=== PATIENT | female | born 1945 | race Caucasian/White ===

== ENCOUNTER → 2017-06-10 | Outpatient (CLI) | payer MEDICARE ==
--- NOTE | 2017-06-11 13:12 | MM ---
Reason for exam: screening (asymptomatic). Last mammogram was performed 1 year ago. History: Patient is postmenopausal. Took estrogen for 7 years beginning at age 54. Physical Findings: A clinical breast exam by your physician is recommended on an annual basis and results should be correlated with mammographic findings. MG 3D Screening Mammo W/Cad Bilateral CC and MLO view(s) were taken. Prior study comparison: June 07, 2016, bilateral MG 3d screening mammo w/cad. September 10, 2012, bilateral digital screening mammo w/CAD. The breast tissue is heterogeneously dense. This may lower the sensitivity of mammography. Finding: There is a 3 mm mass on 3D CC 43/69 view in the left breast inner quadrant, central position, stable from the priors back to 2010.No suspicious abnormality. No significant changes in finding since June 07, 2016 and September 10, 2012. ASSESSMENT: Benign, BI-RAD 2 RECOMMENDATION: Routine screening mammogram of both breasts in 1 year.
== END | disposition home or self-care (01) ==
LOC: RADMAMWWP 09:06
PROVIDERS: ATTEND Family Medicine
DX: Z12.31 Encounter for screening mammogram for malignant neoplasm of breast (principal)
CPT/HCPCS: 77063; G0202

== ENCOUNTER → 2018-07-30 | Outpatient (CLI) | payer MEDICARE ==
--- NOTE | 2018-07-30 11:46 | US ---
EXAMINATION TYPE: US liver DATE OF EXAM: 07/30/2018 COMPARISON: NONE CLINICAL HISTORY: R94.5 Abnormal results of liver function studies. History of cholecystectomy EXAM MEASUREMENTS: Liver Length: 12.5 cm Gallbladder Wall: surgically absent CBD: 0.4 cm Right Kidney: 9.2 x 4.9 x 5.9 cm Pancreas: visualized portions wnl, tail obscured by overlying midline bowel gas Liver: mildly heterogeneous Gallbladder: surgically absent Evidence for sonographic Merchant's sign: yes CBD: visualized portions wnl, limited by overlying bowel gas Right Kidney: 0.5cm hyperechoic focus anterior mid pole IMPRESSION: 1. 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
--- NOTE | 2018-07-31 13:37 | MM ---
Reason for exam: screening (asymptomatic). Last mammogram was performed 1 year and 2 months ago. History: Patient is postmenopausal. Took estrogen for 7 years beginning at age 54. Physical Findings: A clinical breast exam by your physician is recommended on an annual basis and results should be correlated with mammographic findings. MG 3D Screening Mammo W/Cad Bilateral CC and MLO view(s) were taken. Prior study comparison: June 10, 2017, bilateral MG 3d screening mammo w/cad. June 07, 2016, bilateral MG 3d screening mammo w/cad. The breast tissue is heterogeneously dense. This may lower the sensitivity of mammography. Finding: There are typically benign dystrophic, round, linear calcifications in both breasts. There is no discrete abnormality. ASSESSMENT: Benign, BI-RAD 2 RECOMMENDATION: Routine screening mammogram of both breasts in 1 year.
== END | disposition home or self-care (01) ==
LOC: RADMAMWWP 08:48
PROVIDERS: ATTEND Family Medicine
DX: Z12.31 Encounter for screening mammogram for malignant neoplasm of breast (principal); R94.5 Abnormal results of liver function studies
CPT/HCPCS: 76705; 77063; 77067

== ENCOUNTER → 2020-03-20 | Outpatient (CLI) | payer MEDICARE ==
--- NOTE | 2020-03-27 14:09 | HM ---
HOLTER MONITOR REPORT Patient was monitored for 48 hours. The baseline rhythm is a sinus mechanism with normal conduction, the average rate 57 beats per minute, minimum of 41, maximum 92 beats per minute. Ventricular ectopic activity was present in the form of rare single PVCs. Supraventricular ectopic activity was present in the form occasional single PACs. There were short burst of sinus arrhythmia. Symptoms of heart flutter did not correlate with any dysrhythmia. CONCLUSION: 1. Sinus mechanism baseline rhythm. 2. Rare ventricular ectopic activity. 3. Occasional supraventricular ectopic activity. 4. Symptoms did not correlate with any dysrhythmia. MMODL / IJN: [id number] /
== END | disposition home or self-care (01) ==
LOC: RADECHMAIN 12:10
PROVIDERS: ATTEND Family Medicine
DX: R00.2 Palpitations (principal)
CPT/HCPCS: 93225; 93226

== ENCOUNTER → 2020-03-23 | Outpatient (CLI) | payer MEDICARE ==
--- NOTE | 2020-03-23 16:35 | MR ---
EXAMINATION TYPE: MR brain wo con DATE OF EXAM: 03/23/2020 COMPARISON: NONE HISTORY: Dizziness, tinnitus, vertigo TECHNIQUE: Multiplanar, multisequence imaging of the brain and brainstem is performed without IV cont rast. FINDINGS: Diffusion weighted images demonstrate no evidence of a recent infarct or other diffusion abnormality. There is no worrisome extra-axial fluid collection. Diffuse ventricular and sulcal prominence is pres ent. Focal and confluent areas of T2 hyperintensity seen throughout the superficial deep and perivent ricular white matter. T2 Star weighted images show no suspicious intraparenchymal blood products. Midline structures demonstrate normal morphology. The craniocervical junction appears within normal limits. Normal vascular flow voids are present. The visualized sinuses are clear and the globes are i ntact. No suspicious fluid signal bilateral mastoid air cells. IMPRESSION: There is fairly moderate diffuse cerebral atrophy and moderate to severe chronic small ve ssel ischemic change noted.
--- NOTE | 2020-03-24 06:54 | MR ---
EXAMINATION TYPE: MR iac wo/w con DATE OF EXAM: 03/23/2020 COMPARISON: Same day MRI brain study. HISTORY: Dizziness, tinnitus, vertigo TECHNIQUE: Multiplanar, multisequence images of the brain and brainstem is performed without and with IV contras t, utilizing 8.5 mL intravenous Gadavist . Acoustic nerve disorder protocol. FINDINGS: No suspicious fluid signal in the mastoid air cells bilaterally. The vestibulocochlear comp lexes are symmetric and thought within normal limits. There is no suspicious enhancing cerebelloponti ne angle mass identified bilaterally. IMPRESSION: Cause of patient's symptoms of dizziness, tinnitus, and vertigo not clearly identified on this study.
== END | disposition home or self-care (01) ==
LOC: RADMRIMAIN 15:31
PROVIDERS: ATTEND Family Medicine
DX: I67.82 Cerebral ischemia (principal); G31.1 Senile degeneration of brain, not elsewhere classified; R25.1 Tremor, unspecified; R42 Dizziness and giddiness
CPT/HCPCS: 70551; 70553; A9585

== ENCOUNTER → 2020-05-22 | Outpatient (CLI) | payer MEDICARE ==
--- NOTE | 2020-05-23 12:28 | MM ---
Reason for exam: screening (asymptomatic). Last mammogram was performed 1 year and 10 months ago. History: Patient is postmenopausal. Took estrogen for 7 years beginning at age 54. Physical Findings: A clinical breast exam by your physician is recommended on an annual basis and results should be correlated with mammographic findings. MG 3D Screening Mammo W/Cad Bilateral CC and MLO view(s) were taken. Prior study comparison: July 30, 2018, bilateral MG 3d screening mammo w/cad. June 10, 2017, bilateral MG 3d screening mammo w/cad. The breast tissue is heterogeneously dense. This may lower the sensitivity of mammography. Finding: There are typically benign dystrophic, round, linear calcifications in both breasts. There is no discrete abnormality. ASSESSMENT: Benign, BI-RAD 2 RECOMMENDATION: Routine screening mammogram of both breasts in 1 year.
== END | disposition home or self-care (01) ==
LOC: RADMAMWWP 09:05
PROVIDERS: ATTEND Family Medicine
DX: Z12.31 Encounter for screening mammogram for malignant neoplasm of breast (principal)
CPT/HCPCS: 77063; 77067

== ENCOUNTER → 2020-06-22 | Outpatient (CLI) | payer MEDICARE ==
--- NOTE | 2020-06-22 08:53 | XR ---
EXAMINATION TYPE: XR chest 2V DATE OF EXAM: 06/22/2020 COMPARISON: NONE TECHNIQUE: PA and lateral views submitted. HISTORY: Heart palpitations FINDINGS: The lungs are clear and there is no pneumothorax, pleural effusion, or focal pneumonia. Heart size normal. No overt failure. Biapical pleural thickening. Hypertrophic and degenerative changes of the s pine. Surgical clips in the abdomen. Atherosclerotic change aorta. IMPRESSION: 1. No acute process.
== END | disposition home or self-care (01) ==
LOC: RADXRMAIN 08:16
PROVIDERS: ATTEND Family Medicine
DX: R00.2 Palpitations (principal)
CPT/HCPCS: 71046

== ENCOUNTER → 2020-06-22 | Outpatient (CLI) | payer MEDICARE ==
--- NOTE | 2020-06-22 12:11 | US ---
EXAMINATION TYPE: US duplex aorta DATE OF EXAM: 06/22/2020 COMPARISON: NONE CLINICAL HISTORY: Z82.49, Z77.22. family history, brother, no symptom per patient EXAM MEASUREMENTS: Abdominal Aorta: Proximal: 2.0 x 2.2cm Mid: 1.5 x 1.9cm Distal: 1.1 x 1.2cm Bifurcation: Rt 0.7 x 0.8cm Lt 0.8 x 0.9cm Normal caliber aorta seen throughout. A scale, color Doppler, spectral Doppler imaging performed. IMPRESSION: No abdominal aortic aneurysm.
== END | disposition home or self-care (01) ==
LOC: RADUSWWP 07:58
PROVIDERS: ATTEND Family Medicine
DX: Z13.6 Encounter for screening for cardiovascular disorders (principal); Z82.49 Family history of ischemic heart disease and other diseases of the circulatory system; Z77.22 Contact with and (suspected) exposure to environmental tobacco smoke (acute) (chronic)
CPT/HCPCS: 93979

== ENCOUNTER → 2021-11-14 | Outpatient (CLI) | payer MEDICARE ==
--- NOTE | 2021-11-14 12:23 | P.STRESS ---
- Stress Test Note Stress Test Results/Findings: Exam Performed: stress echo exercise Exam Date: 11/14/21 Reason for Exam: t wave inversion Height: 5 ft 5 in Weight: 187 kg Protocol: stress echo Stage: II Duration of Exercise: 3.43 Resting Heart Rate: 62 Resting Blood Pressure: 211/76 Maximum Achieved Heart Rate: 127 Maximum Achieved Blood Pressure: 211/76 85% PMHR: 125 100% PMHR: 147 METS: 5.2 Technologist Comment: Stress Test Results/Findings: Patient underwent exercise stress echo with a Ovi protocol treadmill stress test. Patient exercised into Stage 2 for a total of 3 minutes and 43 seconds reaching a total of 5.2 METS. Patient's maximum heart rate was 127 which represented 86 % age-predicted maximum heart rate. Stress EKG portion: At baseline patient's EKG showed normal sinus rhythm, normal axis, T-wave inversions in lead V4 through V6, 2, aVF, 1, aVL. At peak exercise, EKG showed mild accentuation of a sinus EKG abnormalities with 0.[address] depressions in the lateral leads. Stress echo portion: 2-D echocardiogram was performed in the parasternal long, personal short, apical 2 and apical four-chamber views at rest, peak exercise and in recovery. At baseline, echocardiogram showed left ventricular ejection fraction 55% without wall motion abnormalities. With peak exercise, echocardiogram shows basal to apical anterior hypokinesis consistent with ischemia. Conclusions: 1. Nondiagnostic EKG portion secondary baseline EKG abnormalities 2. Abnormal stress echo portion with inducible anterior hypokinesis 3. Poor exercise capacity.
== END | disposition home or self-care (01) ==
LOC: RADNMMAIN 08:42
PROVIDERS: ATTEND Internal Medicine
DX: R94.31 Abnormal electrocardiogram [ECG] [EKG] (principal)
CPT/HCPCS: 93351

== ENCOUNTER 2021-11-28 07:27 | Day surgery (SDC) | payer MEDICARE ==
[2021-11-27 11:44] VITALS: BMI 31.1
[~2021-11-28 07:27] MED LIST: ALPRAZolam 0.25 MG TAB PO PRN; ALPRAZolam 0.5 MG TAB PO PRN; ASPIRIN 325 MG TAB PO ONE; ATORVASTATIN 80 MG TAB PO ONE; HEPARIN SODIUM,PORCINE 10,000 UNIT in SODIUM CHLORIDE 0.9% 1,000 ML IRRIGATION PRN; HEPARIN SODIUM,PORCINE 2,500 UNIT in SODIUM CHLORIDE 0.9% 250 ML IRRIGATION PRN; NITROGLYCERIN SL TABS 0.4 MG TAB SUBLINGUAL PRN; SODIUM CHLORIDE 0.9% 1,000 ML in EMPTY BAG 1 BAG IV ONE
[2021-11-28 07:52] VITALS: RESP 18; TEMP 97.2
[2021-11-28] MEDS ORDERED: HEPARIN SODIUM 1,000 UN/ML (10ML VL) ONE (08:36)
[2021-11-28] MEDS ORDERED: fentaNYL (PF) 50 MCG/ML 2 ML AMP ONE (08:36)
[2021-11-28] MEDS ORDERED: VERAPAMIL 2.5 MG/ML 2 ML AMP ONE (08:36)
[2021-11-28] MEDS ORDERED: NITROGLYCERIN OINT 1 INCH/GM PACKET TOPICAL ONE ×2 (09:07→09:11)
[2021-11-28] MEDS ORDERED: MIDAZOLAM 2 MG/2 ML VIAL IV ONE (09:08)
[2021-11-28] MEDS ORDERED: ENALAPRILAT 1.25 MG/ML 1 ML VIAL ONE (09:08)
[2021-11-28] MEDS ORDERED: fentaNYL (PF) 50 MCG/ML 2 ML AMP IV ONE (09:08)
[2021-11-28] MEDS ORDERED: ENALAPRILAT 1.25 MG/ML 1 ML VIAL IV ONE (09:10)
[2021-11-28] MEDS ORDERED: LIDOCAINE 1% PF 10 MG/ML (5 ML AMP) SQ ONE (09:10)
[2021-11-28] MEDS ORDERED: VERAPAMIL SYRINGE (5 MG/10 ML) INTRAARTER ONE (09:11)
[2021-11-28] MEDS ORDERED: HEPARIN SODIUM 1,000 UN/ML (10ML VL) IV ONE (09:14)
[2021-11-28] MEDS ORDERED: IOPAMIDOL-370 125ML BTL INJ ONE (09:20)
[2021-11-28] MEDS ORDERED: RX INFO: IV CONTRAST WAS GIVEN 1 EACH MISC MISCELLANE PRN (10:07)
--- NOTE | 2021-11-28 10:09 | CC ---
CARDIAC CATHETERIZATION REPORT INDICATION: Chest pain with abnormal stress echo showing ischemia in LAD distribution. PROCEDURE NOTE: After obtaining informed consent, left heart catheterization and coronary angiogram were performed via the right radial artery using size 3.5 right and left Royal catheters. Left ventricular pressures were obtained using the right Royal catheter. Patient tolerated the procedure well without any obvious immediate complications. She received moderate conscious sedation. Total sedation time was 10 minutes. Using a micropuncture needle with Seldinger technique, right radial artery access was obtained, and under fluoroscopic guidance catheters and wires were advanced into the ascending aorta, where they were exchanged. Patient received 5 mg of verapamil and 5000 units of heparin as per protocol. A TR band was used at the end of the procedure for hemostasis with the standard protocol. FINDINGS: HEMODYNAMICS: Left ventricular end-diastolic pressure is 21 mm. There is no significant gradient across the aortic valve. LEFT VENTRICULOGRAM: Left ventriculogram was not performed. ANGIOGRAPHIC DATA: Right coronary artery is a large dominant vessel and is free of significant disease. Left main coronary artery is a normal-sized vessel and is free of significant stenosis. It divides into left anterior descending coronary artery and circumflex coronary artery. LAD and its branches, circumflex coronary artery and its branches are free of significant stenosis. CONCLUSIONS: 1. Normal coronary arteries. 2. Elevated left ventricular end-diastolic pressures. 3. Uncontrolled hypertension. PLAN: Patient's stress test is a false-positive stress test. Her symptoms could be related to uncontrolled hypertension. I will increase the dose of clonidine from 0.1 three times a day to 0.3 three times a day and continue the rest of her medications. I will give her 1.25 mg of Vasotec and put an inch of nitroglycerin paste on her prior to cardiac catheterization, as her blood pressures were poorly controlled. MMODL / IJN: [id number] /
--- NOTE | 2021-11-28 10:12 | LTR ---
November 28, 2021 To: Dr. Laureano Amaro Re: Greg Dixon ([id number]) Dear Dr. Amaro, I performed cardiac catheterization on Loida Dixon. A detailed catheterization note is enclosed for your records. In brief, the cardiac catheterization did not reveal significant obstructive CAD. I believe patient's symptoms are related to uncontrolled hypertension, and we will manage the same aggressively. Thank you for giving me the privilege of participating in the care of this pleasant lady. Sincerely, Austyn Sun M.D. ESTHER / ZENIA: [id number] /
[2021-11-28] MEDS ORDERED: SODIUM CHLORIDE 0.9% 1,000 ML IV SCH (10:15)
[2021-11-28 13:21] VITALS: BP 146/67; PULSE 49
== END 2021-11-28 14:50 | disposition home or self-care (01) ==
LOC: CATHCVL 07:27
PROVIDERS: ATTEND Internal Medicine Cardiovascular Disease
DX: R07.9 Chest pain, unspecified (principal); R94.39 Abnormal result of other cardiovascular function study; I51.89 Other ill-defined heart diseases; I10 Essential (primary) hypertension; E78.2 Mixed hyperlipidemia; E03.9 Hypothyroidism, unspecified; Z88.2 Allergy status to sulfonamides; Z82.49 Family history of ischemic heart disease and other diseases of the circulatory system; Z79.82 Long term (current) use of aspirin; Z79.890 Hormone replacement therapy; Z79.899 Other long term (current) drug therapy
CPT/HCPCS: 93458; C1894; J2250; J2001; J3010; J1644; Q9967

== ENCOUNTER → 2022-01-11 | Outpatient (CLI) | payer MEDICARE ==
--- NOTE | 2022-01-11 16:06 | BD ---
EXAMINATION TYPE: Axial Bone Density DATE OF EXAM: 01/11/2022 COMPARISON: 06/07/2016 CLINICAL HISTORY: 76 years year old Female. ICD-10 CODE: V8281 ENCOUNTER FOR OSTEOPOROSIS SCREENING Height: 64 IN Weight: 184 LBS FRAX RISK QUESTIONS: Family History (Parent hip fracture): YES MOTHER History of Fracture in Adulthood: RT SHOULDER AGE 68 RISK FACTORS HISTORY OF: Family History of Osteoporosis: MOTHER Active: YES Diet low in dairy products/other sources of calcium: YES Postmenopausal woman: TOTAL HYST AGE 52 Take estrogen and/or progesterone medications: NOT NOW How long: TOOK 10 YEARS MEDICATIONS: Thyroid Medications: YES Which medication: Levothyroxine How Lon YEARS Additional Medications: VIT D3, LEVOTHYROXINE, ESSENTIAL TREMORS MEDS, BLOOD PRESSURE MEDS, CHOLESTER OL MEDS, EXAM MEASUREMENTS: Bone mineral densitometry was performed using the Trendzo System. Bone mineral density as measured about the Lumbar spine is: ----- L1-L4(G/cm2): 1.722 T Score Values are as follows: ----- L1: 3.5 ----- L2: 3.9 ----- L3: 4.9 ----- L4: 5.3 ----- L1-L4: 4.5 Bone mineral density has: Decreased -1.6% since study of: 06/07/2016 Bone mineral density about the R hip (g/cm2): 1.196 Bone mineral density about the L hip (g/cm2): 1.286 T Score values are as follows: -----R Neck: 1.1 -----L Neck: 1.8 -----R Total: 1.2 -----L Total: 1.0 Bone mineral density has: Decreased -1.2% since study of: 06/07/2016 FRAX%s: The graph provided illustrates a 3.9 chance for a major osteoporotic fx and a 0.6 chance for the hips probability for fx in 10 years time. IMPRESSION: Normal (Values between +1 and -1 indicate normal bone mass). Consider repeating this study in 5 year s or sooner if there is some new clinical indication. NOTE: T-SCORE=SD OF THE YOUNG ADULT MEAN.
--- NOTE | 2022-01-14 18:47 | MM ---
Reason for Exam: Screening (asymptomatic). Last mammogram was performed 1 year(s) and 8 month(s) ago. Patient History: Menarche at age 15. First Full-Term at age 26. Left ovary removed at age 53. Right ovary removed at age 53. Hysterectomy at age 53. Postmenopausal. Estrogen for 7 years from age 54 until age 61. Risk Values: Alejandra 5 year model risk: 1.6%. NCI Lifetime model risk: 3.7%. Prior Study Comparison: 06/10/2017 Bilateral Screening Mammogram, [facility]. 07/30/2018 Bilateral Screening Mammogram, [facility]. 05/22/2020 Bilateral Screening Mammogram, [facility]. Tissue Density: The breast tissue is heterogeneously dense. This may lower the sensitivity of mammography. Findings: Analyzed By CAD. Scattered benign oil cyst and secretory calcifications on both sides. Unchanged medial asymmetric density right breast. No significant change from prior exams. Overall Assessment: Benign, BI-RAD 2 Management: Screening Mammogram of both breasts in 1 year. 1. A clinical breast exam by your physician is recommended on an annual basis and results should be correlated with mammographic findings. 2. The patient should continue monthly self breast exams. 3. This exam should not preclude additional follow-up of suspicious palpable abnormalities. Electronically signed and approved by: Tamar Ha M.D. Radiologist
== END | disposition home or self-care (01) ==
LOC: RADMAMWWP 07:54
PROVIDERS: ATTEND Internal Medicine
DX: Z12.31 Encounter for screening mammogram for malignant neoplasm of breast (principal); Z13.820 Encounter for screening for osteoporosis; Z78.0 Asymptomatic menopausal state
CPT/HCPCS: 77063; 77067; 77080

== ENCOUNTER → 2023-03-05 | Outpatient (CLI) | payer MEDICARE ==
--- NOTE | 2023-03-05 09:02 | MM ---
Reason for Exam: Screening (asymptomatic). Last mammogram was performed 1 year(s) and 2 month(s) ago. Patient History: Menarche at age 15. First Full-Term at age 26. Left ovary removed at age 53. Right ovary removed at age 53. Hysterectomy at age 53. Postmenopausal. Estrogen for 7 years from age 54 until age 61. Risk Values: Alejandra 5 year model risk: 1.6%. NCI Lifetime model risk: 3.4%. Prior Study Comparison: 07/30/2018 Bilateral Screening Mammogram, [facility]. 05/22/2020 Bilateral Screening Mammogram, [facility]. 01/11/2022 Bilateral MG 3D screening mammo w/cad, [facility]. Tissue Density: The breast tissue is heterogeneously dense. This may lower the sensitivity of mammography. Findings: Analyzed By CAD. There is no suspicious group of microcalcifications or new suspicious mass in either breast. Stable benign calcifications within both breasts. Unchanged medial asymmetric density of the right breast. Chronic nodularity with the left breast is unchanged. Overall Assessment: Benign, BI-RAD 2 Management: Screening Mammogram of both breasts in 1 year. A clinical breast exam by your physician is recommended on an annual basis and results should be correlated with mammographic findings. Note on Alejandra scores and lifetime risk: 1. A Alejandra score greater than 3% is considered moderate risk. If this is the case, consider specialist referral to assess eligibility for a risk reducing agent. If overall lifetime risk for the development of breast cancer is 20% or higher, the patient may qualify for future screening with alternating mammogram and breast MRI. Electronically signed and approved by: Deny Schmitt D.O.
== END | disposition home or self-care (01) ==
LOC: RADMAMWWP 07:54
PROVIDERS: ATTEND Internal Medicine
DX: Z12.31 Encounter for screening mammogram for malignant neoplasm of breast (principal); Z78.0 Asymptomatic menopausal state
CPT/HCPCS: 77063; 77067

== ENCOUNTER → 2023-06-10 | Outpatient (CLI) | payer MEDICARE ==
--- NOTE | 2023-06-10 08:36 | US ---
EXAMINATION TYPE: US abdomen complete DATE OF EXAM: 06/10/2023 COMPARISON: US 07/30/2018 CLINICAL INDICATION: Female, 77 years old with history of R74.01 ELEVATION OF LEVELS OF LIVER TRANSAM INASE; Elevated LFT's, GB surgically removed TECHNIQUE: Multiple sonographic images of the abdomen are obtained. FINDINGS: EXAM MEASUREMENTS: Liver Length: 15.3 cm CBD: 0.8 cm Spleen: 8.8 cm Right Kidney: 9.5 x 4.9 x 4.4 cm Left Kidney: 10.2 x 4.9 x 4.7 cm AIRPORT OPERATIONS OFFICER NOTES: Pancreas: wnl, Head and Tail obscured by overlying bowel gas Liver: Heterogeneous Gallbladder: Surgically absent CBD: wnl Spleen: wnl Right Kidney: wnl Left Kidney: wnl Upper IVC: wnl Abd Aorta: wnl The visualized portions of the pancreas unremarkable. The head and tail aren't secured by overlying b owel gas. Liver demonstrates a hyperechoic coarsened echotexture without focal lesion identified. Gal lbladder surgically absent. Common bile duct is within normal limits. The spleen is within normal jessica its. Both kidneys demonstrate no evidence of solid mass, calculus, or hydronephrosis. The upper IVC a nd abdominal aorta are within normal limits. IMPRESSION: 1. No acute process. 2. Hepatic steatosis. 3. Post cholecystectomy changes.
== END | disposition home or self-care (01) ==
LOC: RADUSWWP 08:05
PROVIDERS: ATTEND Internal Medicine
DX: K76.0 Fatty (change of) liver, not elsewhere classified (principal); R74.01 Elevation of levels of liver transaminase levels; Z90.49 Acquired absence of other specified parts of digestive tract
CPT/HCPCS: 76700

== ENCOUNTER → 2023-07-15 | Outpatient (CLI) | payer MEDICARE ==
[2023-07-15 09:51] VITALS: BP 181/78; PULSE 70; RESP 18; TEMP 98.4
--- NOTE | 2023-07-15 11:09 | P.HPOB ---
History of Present Illness H&P Date: 07/15/23 Chief Complaint: The patient is here for her routine gynecologic exam and ma mmogram. This is a 77-year-old with an LMP of 1999. The patient is here to establish with this office. It has been about 2-3 years since her last pelvic exam. She is status post JULISA/BSO for benign reasons. She states that her has noticed some lumps in the vagina that he noticed with his fingers during sexual activity. This has been noticed for many years. The patient states she feels a firm area in the posterior vagina that she can palpate and is from nail size. Her thinks he feels some polyp-like tissue higher in the vagina. She states these are not painful and they have been there for many years. She is otherwise without gynecologic complaints. Review of Systems The patient's weight has been stable over the last year. She denies respiratory, cardiac, or G.I. problems. Past Medical History Past Medical History: Hyperlipidemia, Hypertension, Thyroid Disorder Additional Past Medical History / Comment(s): Essential tremor. 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 Possible fatty liver. 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 History of Any Multi-Drug Resistant Organisms: None Reported Past Surgical History: Appendectomy, Cholecystectomy, Hysterectomy Additional Past Surgical History / Comment(s): JULISA/BSO 1999. Excision of Bartholin's duct cyst. Colonoscopy 2019(next after 3 years.) Past Anesthesia/Blood Transfusion Reactions: No Reported Reaction Past Psychological History: No Psychological Hx Reported Smoking Status: Never smoker Past Alcohol Use History: Daily (2-3 glasses of wine per day. Occasional liquor on the weekend.) Past Drug Use History: None Reported Additional History: She has been since 1992 and this is her second ma rriage. 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 - Past Family History Mother Family Medical History: Dementia, Hyperlipidemia Additional Family Medical History / Comment(s): Alzheimer's disease and osteoporosis. She denies family history of cancer of the breast, uterus, ovaries, or colon. Father Family Medical History: Coronary Artery Disease (CAD), Dementia Medications and Allergies Home Medications Medication Instructions Recorded Confirmed Type Aspirin [Adult Low Dose Aspirin EC] 81 mg PO DAILY 11/27/21 07/15/23 History Levothyroxine Sodium [Synthroid] 50 mcg PO QAM 11/27/21 07/15/23 History Propranolol HCl [Propranolol HCl 120 mg PO 1200 11/27/21 07/15/23 History ER] Rosuvastatin Calcium 10 mg PO HS 11/27/21 07/15/23 History amLODIPine [Norvasc] 5 mg PO DAILY 07/15/23 07/15/23 History Allergies Allergy/AdvReac Type Severity Reaction Status Date / Time eggplant Allergy Chest Pain Verified 07/15/23 09:37 Sulfa (Sulfonamide Allergy Swelling Verified 07/15/23 09:37 Antibiotics) latex AdvReac Itching Verified 07/15/23 09:37 Exam Vital Signs Temp Pulse Resp BP Pulse Ox 07/15/23 09:40 98.4 F 70 18 181/78 97 Intake and Output 07/14/23 07/15/23 07/15/23 22:59 06:59 14:59 Other: Weight 86.183 kg Height 5 feet 5 inches, weight 190 pounds, BMI 31.6. This is a well-developed well-nourished white female who is alert and oriented times 3 in no acute distress. HEENT: Within normal limits. NECK: Supple without mass or thyromegaly. CHEST AND LUNGS: Clear to auscultation. HEART: Regular rate and rhythm. BREASTS: Are without mass or discharge. AXILLARY EXAM: Negative for adenopathy. BACK: Negative for CVA tenderness. ABDOMEN: Soft, nontender, without palpable masses. PELVIC EXAM: External genitalia appears normal with mild atrophy. Vagina appears normal mild atrophy. There are small benign-appearing flaps of vaginal mucosa measuring approximately 0.5 cm in the posterior vagina on the right side. There is no evidence of prolapse. There is a palpable submucosal cyst noted in the midline posteriorly approximately 4 cm from the introitus. This is smooth and mobile and measures approximately 1.5 cm. It is nontender. Bimanual examination is negative for mass or tenderness. RECTAL EXAM: Rectovaginal exam is remarkable for a palpable cyst as described in the vaginal exam which seems to be submucosal but is palpable in the rectovaginal septum. Again, it is mobile and nontender in seems to be a benign cyst. The rectovaginal septum is quite thin but there is no evidence of fistula. EXTREMITIES: Nontender. IMPRESSION: 1. 77-year-old menopausal female status post JULISA/BSO for benign reasons, with a submucosal vaginal cyst on the posterior aspect of the vagina approximately 4 cm from the introitus which has been noticed for many years by the patient and her . This seems to be a benign cyst since it has not changed according to the patient for many years. PLAN: 1. Pap smears have been discontinued. 2. Self breast awareness was discussed with the patient. We have also discussed symptoms associated with inflammatory breast cancer. 3. Screening mammogram was done on 03/05/2023 and was benign. She will repeat this after 1 year. 4. Osteoporosis prevention was discussed. I have stressed the importance of adequate calcium, vitamin D and regular exercise. Recommended amounts of calcium and vitamin D were also discussed. She had normal bone density test on 01/11/2022. I have recommended she repeat this in approximate 5 years. 5. We have had a long discussion regarding the vaginal findings. Uses seem to be very benign findings. We have discussed the option of surgical removal of the submucosal cyst that measures approximate 1.5 cm, however, I do not feel that this is necessary and, in fact, it may pose a significant risk of potentially causing a tear into the rectum. We have decided to follow this conservatively. She will check it regularly and call if there are any changes. I also recommended that she return in 6 months for a recheck by me. 6. She will also return on a regular basis for her well woman examination.
== END ==
LOC: WWCWWP 09:30
PROVIDERS: ATTEND Obstetrics & Gynecology
DX: N89.8 Other specified noninflammatory disorders of vagina (principal); E03.9 Hypothyroidism, unspecified; E78.5 Hyperlipidemia, unspecified; G25.0 Essential tremor; I10 Essential (primary) hypertension; Z90.710 Acquired absence of both cervix and uterus; Z78.0 Asymptomatic menopausal state; Z90.722 Acquired absence of ovaries, bilateral; Z79.890 Hormone replacement therapy; Z79.899 Other long term (current) drug therapy; Z79.82 Long term (current) use of aspirin; Z91.012 Allergy to eggs; Z88.2 Allergy status to sulfonamides; Z91.040 Latex allergy status

== ENCOUNTER 2023-08-22 07:08 | Day surgery (SDC) | payer MEDICARE ==
[2023-08-18 09:38] VITALS: BMI 32.4
[~2023-08-22 07:08] MED LIST changes: -ALPRAZolam 0.25 MG TAB PO PRN; -ALPRAZolam 0.5 MG TAB PO PRN; -ASPIRIN 325 MG TAB PO ONE; -ATORVASTATIN 80 MG TAB PO ONE; -HEPARIN SODIUM,PORCINE 10,000 UNIT in SODIUM CHLORIDE 0.9% 1,000 ML IRRIGATION PRN; -HEPARIN SODIUM,PORCINE 2,500 UNIT in SODIUM CHLORIDE 0.9% 250 ML IRRIGATION PRN; +LACTATED RINGERS 1,000 ML IV SCH; +LIDOCAINE 1% (10MG/ML) FOR IV START INTRADERMA PRN; -NITROGLYCERIN SL TABS 0.4 MG TAB SUBLINGUAL PRN; -SODIUM CHLORIDE 0.9% 1,000 ML in EMPTY BAG 1 BAG IV ONE
[2023-08-22 08:01] VITALS: TEMP 98
[2023-08-22] MEDS ORDERED: LIDOCAINE 1% INJ 10MG/ML (20 ML MDV) ONE (08:18)
[2023-08-22] MEDS ORDERED: PROPOFOL 10 MG/ML 20 ML VIAL IV ONE (08:18)
--- NOTE | 2023-08-22 08:36 | P.PCN ---
Date of Procedure: 08/22/23 Procedure(s) Performed: BRIEF HISTORY: Patient is a 77-year-old pleasant white female scheduled for an elective colonoscopy as a part of evaluation of prior history of colon polyps. Last colonoscopy was 3 years ago. PROCEDURE PERFORMED: Colonoscopy. PREOPERATIVE DIAGNOSIS: History of colon polyps. IV sedation per Anesthesia. PROCEDURE: After informed consent was obtained, the patient, was brought into the endoscopy unit. IV sedation was administered by Anesthesia under continuous monitoring. Digital rectal examination was normal. Initially the Olympus CF-160 flexible video colonoscope was then inserted in the rectum, gradually advanced into the cecum without any difficulty. Careful examination was performed as the scope was gradually being withdrawn. Ileocecal valve and the appendiceal orifice were visualized and appeared normal. Prep was excellent. Mucosa of the cecum, ascending colon, transverse colon, descending colon, sigmoid colon, and rectum appeared normal. Retroflexion was performed in the rectum and small internal hemorrhoids were seen. The patient tolerated the procedure well. IMPRESSION: ' Normal-appearing colon from rectum to cecum with no evidence of colorectal neoplasia. Small internal hemorrhoids. RECOMMENDATIONS: Findings of this examination were discussed with the patient as well as her family. She was advised to have a repeat colonoscopy in 5 years from now because of the prior history of colon polyps.
[2023-08-22 09:17] VITALS: BP 114/67; PULSE 77; RESP 15
== END 2023-08-22 09:13 | disposition home or self-care (01) ==
LOC: ORWHC2ENDO 07:08
PROVIDERS: ATTEND Internal Medicine Gastroenterology
DX: Z12.11 Encounter for screening for malignant neoplasm of colon (principal); K64.8 Other hemorrhoids; Z86.010 Personal history of colon polyps
CPT/HCPCS: J2001; J2704; G0105

== ENCOUNTER 2024-01-21 11:02 | Observation (INO) | payer MEDICARE ==
--- NOTE | 2024-01-21 11:57 | ED ---
Chest Pain HPI - General Chief Complaint: Chest Pain Stated Complaint: Chest Pain Time Seen by Provider: 01/21/24 11:20 Source: patient, RN notes reviewed Mode of arrival: ambulatory Limitations: no limitations - History of Present Illness Initial Comments: 78-year-old female with history of hypertension presenting with chest pressure x 2 hours. States she was driving in the car with her coming home from the grocery store when she began to feel a sensation in her chest that feels like pressure. It radiates to both shoulders. She also was experiencing heart palpitations at this time. She drove to her PCP office who performed an EKG and gave her 3 baby aspirin and a nitroglycerin tablet. He told her he wanted to call an ambulance for her however patient declined and decided to drive to the ER instead. She reports she is no longer having the chest pressure. Denies chest pain, shortness of breath. She takes a daily aspirin however denies blood thinners. She had workup done with Dr. [employer] representative who told her that her heart looked normal. Denies history of CA. She takes propranolol 120 mg daily however reports she did not take this morning. - Related Data Home Medications Medication Instructions Recorded Confirmed Aspirin [Adult Low Dose Aspirin EC] 81 mg PO DAILY@1800 11/27/21 01/21/24 Levothyroxine Sodium [Synthroid] 50 mcg PO DAILY@0500 11/27/21 01/21/24 Propranolol HCl [Propranolol HCl 120 mg PO DAILY@1000 11/27/21 01/21/24 ER] Rosuvastatin Calcium 10 mg PO HS@2100 11/27/21 01/21/24 amLODIPine [Norvasc] 5 mg PO DAILY@1200 07/15/23 01/21/24 Allergies Allergy/AdvReac Type Severity Reaction Status Date / Time eggplant Allergy Chest Pain Verified 01/21/24 13:22 Sulfa (Sulfonamide Allergy Swelling Verified 01/21/24 13:22 Antibiotics) latex AdvReac Itching Verified 01/21/24 13:22 Review of Systems ROS Statement: Those systems with pertinent positive or pertinent negative responses have been documented in the HPI. ROS Other: All systems not noted in ROS Statement are negative. EKG Findings - EKG Results: EKG: interpreted by JOESPH (EKG reveals normal sinus rhythm with no ST changes. Ventricular rate 80 bpm, ID interval 157, QRS duration 69, QT/QTc 373/409.) Past Medical History Past Medical History: Hyperlipidemia, Hypertension, Osteoarthritis (OA), Thyroid Disorder Additional Past Medical History / Comment(s): Essential tremor. 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 fatty liver. 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 History of Any Multi-Drug Resistant Organisms: None Reported Past Surgical History: Appendectomy, Cholecystectomy, Hysterectomy Additional Past Surgical History / Comment(s): JULISA/BSO 1999. Excision of Bartholin's duct cyst. Colonoscopy 2019.) Past Anesthesia/Blood Transfusion Reactions: No Reported Reaction Additional Past Anesthesia/Blood Transfusion Reaction / Comment(s): no blood transfusion Past Psychological History: No Psychological Hx Reported Smoking Status: Never smoker Past Alcohol Use History: None Reported Past Drug Use History: None Reported - Past Family History Mother Family Medical History: Dementia, Hyperlipidemia Additional Family Medical History / Comment(s): Alzheimer's disease and osteoporosis. She denies family history of cancer of the breast, uterus, ovaries, or colon. Father Family Medical History: Coronary Artery Disease (CAD), Dementia General Exam Limitations: no limitations General appearance: alert, in no apparent distress Head exam: Present: atraumatic, normocephalic, normal inspection Eye exam: Present: normal appearance, PERRL, EOMI. Absent: scleral icterus, conjunctival injection, periorbital swelling ENT exam: Present: normal exam, mucous membranes moist Neck exam: Present: normal inspection. Absent: tenderness, meningismus, lymphadenopathy Respiratory exam: Present: normal lung sounds bilaterally. Absent: respiratory distress, wheezes, rales, rhonchi, stridor Cardiovascular Exam: Present: regular rate, normal rhythm, normal heart sounds. Absent: systolic murmur, diastolic murmur, rubs, gallop, clicks GI/Abdominal exam: Present: soft, normal bowel sounds. Absent: distended, tenderness, guarding, rebound, rigid Extremities exam: Present: normal inspection, full ROM, normal capillary refill. Absent: tenderness, pedal edema, joint swelling, calf tenderness Neurological exam: Present: alert, oriented X3, CN II-XII intact Psychiatric exam: Present: normal affect, normal mood Skin exam: Present: warm, dry, intact, normal color. 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 sent in by a medical professional or institution (, [facility], HEALTH EQUIPMENT SERVICER, urgent care, hospital, or [place] health care facility...) When possible be specific @ -Sent by Dr. Amaro for ACS rule out Did you speak to anyone other than the patient for history (EMS, parent, family, police, friend...)? What history was obtained from this source @ -No Did you review nursing and triage notes (agree or disagree)? Why? @ -I reviewed and agree with nursing and triage notes Were old charts reviewed (outside hosp., previous admission, EMS record, old EKG, old radiological studies, urgent care reports/EKG's, [place] health care facility records)? Report findings @ -No old charts were reviewed Differential Diagnosis (chest pain, altered mental status, abdominal pain women, abdominal pain men, vaginal bleeding, weakness, fever, dyspnea, syncope, headache, dizziness, GI bleed, back pain, seizure, CVA, palpatations, mental health, musculoskeletal)? @ -Differential Chest Pain: Stable Angina, Unstable Angina, STEMI, NSTEMI Aortic Dissection, Pneumothorax, Musculoskeletal, Esophageal Spasm GERD, Cholecystitis, Pancreatitis, Zoster, this is not meant to be an all-inclusive list. EKG interpreted by me (3pts min.). @ -As above X-rays interpreted by me (1pt min.). @ -Chest x-ray reveals no acute process CT interpreted by me (1pt min.). @ -None done U/S interpreted by me (1pt. min.). @ -None done What testing was considered but not performed or refused? (CT, X-rays, U/S, labs)? Why? @ -None What meds were considered but not given or refused? Why? @ -None Did you discuss the management of the patient with other professionals (professionals i.e. , [facility], HEALTH EQUIPMENT SERVICER, lab, RT, psych nurse, psychotherapist social worker, transportation technician, teacher, environmental conservation officer, major case detective)? Give summary @ -Case discussed with Dr. Nielsen who accepts admission to observation at this time to rule out ACS with cardiology consult Was smoking cessation discussed for >3mins.? @ -No Was critical care preformed (if so, how long)? @ -No Were there social determinants of health that impacted care today? How? (Homelessness, low income, unemployed, alcoholism, drug addiction, transportation, low edu. Level, literacy, decrease access to med. care, correction, rehab)? @ -No Was there de-escalation of care discussed even if they declined (Discuss DNR or withdrawal of care, Hospice)? DNR status @ -No What co-morbidities impacted this encounter? (DM, HTN, Smoking, COPD, CAD, Cancer, CVA, ARF, Chemo, Hep., AIDS, mental health diagnosis, sleep apnea, morbid obesity)? @ -Hypertension Was patient admitted / discharged? Hospital course, mention meds given and route, prescriptions, significant lab abnormalities, going to OR and other pertinent info. @ -Patient was admitted. Patient was seen and evaluated for chest pain since this morning. Patient has history of hypertension. Patient is currently asymptomatic. Nitroglycerin tab as well as 3 baby aspirin's at PCP this morning before coming to the ER. Blood pressure is elevated at 191/88. Physical examination is unremarkable. EKG reveals normal sinus rhythm with no ST changes, chest x-ray revealed no acute process, all lab work including CBC, CMP, troponin, coags, magnesium is unremarkable. Case discussed with Dr. Nielsen who accepts admission to observation at this time to rule out ACS with cardiology consult. Case discussed with my attending Dr. Selby. Undiagnosed new problem with uncertain prognosis? @ -No Drug Therapy requiring intensive monitoring for toxicity (Heparin, Nitro, Insulin, Cardizem)? @ -No Were any procedures done? @ -No Diagnosis/symptom? @ -Chest pain rule out ACS Acute, or Chronic, or Acute on Chronic? @ -Acute Uncomplicated (without systemic symptoms) or Complicated (systemic symptoms)? @ -Uncomplicated Side effects of treatment? @ -No Exacerbation, Progression, or Severe Exacerbation? @ -No Poses a threat to life or bodily function? How? (Chest pain, USA, CA, pneumonia, PE, COPD, DKA, ARF, appy, cholecystitis, CVA, Diverticulitis, Homicidal, Suicidal, threat to staff... and all critical care pts) @ -Yes, chest pain Disposition Clinical Impression: Chest pain Disposition: ADMITTED IP TO THIS [facility] Time of Disposition: 13:44
[2024-01-21 12:01] LABS: Basophils # (A) 0.1 k/uL (0-0.2); Basophils % (A) 1 %; Eosinophils # (A) 0.1 k/uL (0-0.7); Eosinophils % (A) 2 %; HCT 46.4 % (34.0-46.0); HGB 15.3 gm/dL (11.4-16.0); Lymphocytes # (A) 1.6 k/uL (1.0-4.8); Lymphocytes % (A) 22 %; MCH 32.4 pg (25.0-35.0); MCHC 32.9 g/dL (31.0-37.0); MCV 98.3 fL (80.0-100.0); Mean Platelet Volume 9.2; Monocytes # (A) 0.4 k/uL (0-1.0); Monocytes % (A) 5 %; Neutrophils % (A) 69 %; Platelet Count 214 k/uL (150-450); RBC 4.72 m/uL (3.80-5.40); RDW 12.6 % (11.5-15.5); WBC 7.2 k/uL (3.8-10.6)
[2024-01-21 12:06] LABS: ALT 32 U/L (4-34); AST 36 U/L (14-36); African American GFR (CKD) >90 (>60 ml/min/1.73 sqM); Albumin 4.4 g/dL (3.5-5.0); Alkaline Phosphatase 80 U/L (38-126); Anion Gap 9 mmol/L; Blood Urea Nitrogen 13 mg/dL (7-17); Calcium 9.3 mg/dL (8.4-10.2); Carbon Dioxide 20 mmol/L (22-30); Chloride 111 mmol/L (98-107); Glucose 87 mg/dL (74-99); Magnesium 1.8 mg/dL (1.6-2.3); Non-African American GFR(CKD) 86 (>60 ml/min/1.73 sqM); Potassium 4.3 mmol/L (3.5-5.1); Sodium 140 mmol/L (137-145); Total Bilirubin 0.8 mg/dL (0.2-1.3); Total Protein 7.2 g/dL (6.3-8.2)
[2024-01-21 12:18] LABS: INR 0.9 (<1.2); Partial Thromboplastin Time 23.8 sec (22.0-30.0); Prothrombin Time 10.5 sec (10.0-12.5)
--- NOTE | 2024-01-21 12:52 | XR ---
EXAMINATION TYPE: XR chest 2V DATE OF EXAM: 01/21/2024 12:33 PM CLINICAL INDICATION:Female, 78 years old with history of Chest Pain; COMPARISON: Chest radiographs from none TECHNIQUE: XR chest 2V Frontal and lateral views of the chest. FINDINGS: Lungs/Pleura: There is no evidence of pleural effusion, focal consolidation, or pneumothorax. Pulmonary vascularity: Unremarkable. Heart/mediastinum: Cardiomediastinal silhouette is unremarkable. Musculoskeletal: No acute osseous pathology. IMPRESSION: No acute cardiopulmonary disease/process.
[2024-01-21] MEDS ORDERED: NALOXONE 0.4 MG/ML 1 ML VIAL IV PRN (13:40)
[2024-01-21] MEDS: ALPRAZolam 0.5 MG TAB PO STA (16:29)
[2024-01-21] MEDS: amLODIPine 10 MG TAB PO STA (16:29)
[2024-01-21] MEDS: ASPIRIN 81 MG PO SCH (18:28)
--- NOTE | 2024-01-21 19:03 | P.HPIM ---
History of Present Illness H&P Date: 01/21/24 History of Presenting Illness: Patient is a very pleasant 78-year-old female with a past medical history of hypertension, hyperlipidemia, hypothyroidism, and essential tremors. Presented to the emergency department with a chief complaint of chest pressure, cold sweats, dizziness, and palpitations. Patient reports she was feeling her baseline self and shortly after leaving [employer] she suddenly felt cold sweats followed by dizziness/lightheadedness, palpitations and lastly chest pressure. Patient reports she was right down the street from her PCPs office so her drove straight there. She was given aspirin and sublingual nitroglycerin while an EKG was completed. Patient reports resolution of chest pressure after receiving nitroglycerin but was advised by her PCP to go directly to the hospital for further evaluation. Patient currently reports chest pressu re remains resolved and denies any further episodes of cold sweats, dizziness/lightheadedness, or palpitations at this time. Patient denies cardiac history. Upon arrival to our facility, patient underwent evaluation in the emergency department. Vital signs upon arrival show blood pressure 210/89, heart rate 75, respiratory rate 16, temp 98.1 F, and SpO2 of 97% on room air. EKG was completed showing normal sinus rhythm at 80 bpm. Chest x-ray completed negative for acute cardiopulmonary process. Labs completed and reviewed. CBC unremarkable. Coagulation profile normal findings. BMP showing non-anion gap metabolic acidosis with chloride of 111, bicarb of 20, and anion gap of 9. Troponin was negative at less than 0.012. Liver profile unremarkable. Blood glucose was 87. Patient was admitted under our services with consultation to cardiology. Review of systems: Pertinent positives and negatives as discussed in HPI, a complete review of systems was performed and all other systems are negative. Physical exam: Vital signs reviewed and stable. General: Nontoxic, no distress and appears stated age. Derm: Skin warm and dry, normal coloration for ethnicity. Head: Atraumatic, normocephalic and symmetric. Eyes: EOMs intact, no lid lag, and anicteric sclera Mouth: no lip lesions, mucus membranes moist Cardiovascular: regular rate and rhythm with normal S1S2, no murmur, positive posterior tibial pulses bilaterally, and cap refill < 2 seconds. Lungs: Respirations even, regular, and unlabored on room air. Lungs CTA bilaterally, no rhonchi, no rales, no wheezing, and no accessory muscle usage. Abdominal: soft, nontender to palpation, no guarding, no appreciable org anomegaly Ext: ROM intact. No gross muscle atrophy, no edema, no contractures Neuro: Speech clear, face symmetrical and CN II-XII grossly intact with no noted focal neuro deficits Psych: Alert and oriented to person, place, time, and situation. Appropriate and pleasant affect. Assessment and Plan of Care: Chest pain, rule out acute coronary event Hypertensive urgency Hypothyroidism Hyperlipidemia -Cardiology consulted, appreciate recommendations -Telemetry monitoring -Trend troponins -Cardiac diet, NPO at midnight -Aspirin 81 mg daily, atorvastatin milligrams nightly, and amlodipine 5 mg daily. -Lipid profile with a.m. labs. -Echocardiogram -Will obtain a TSH with reflex free T4 Essential tremors Continue propranolol 120 mg daily. Data and imaging reviewed: As stated above in HPI The patient is admitted with an anticipated less than 2 midnight stay for evaluation of chest pain CODE STATUS: Full code DVT prophylaxis: Heparin Anticipated discharge date: 24 to [address]: Home Patient was seen independently by Nurse Practitioner. This document was prepared using [employer] dictation software. Please allow for errors in tape machine tailer while rare they do occur. I reviewed the documentation as provided by the BETTY above, who is the original author of this note. I agree with the documented assessment and plan, with the following changes: none Past Medical History Past Medical History: Hyperlipidemia, Hypertension, Osteoarthritis (OA), Thyroid Disorder Additional Past Medical History / Comment(s): Essential tremor. 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 History of Any Multi-Drug Resistant Organisms: None Reported Past Surgical History: Appendectomy, Cholecystectomy, Hysterectomy Additional Past Surgical History / Comment(s): JULISA/BSO 1999. Excision of Bartholin's duct cyst. Colonoscopy 2019.) Past Anesthesia/Blood Transfusion Reactions: No Reported Reaction Additional Past Anesthesia/Blood Transfusion Reaction / Comment(s): no blood transfusion Past Psychological History: No Psychological Hx Reported Smoking Status: Never smoker Past Alcohol Use History: None Reported Past Drug Use History: None Reported - Past Family History Mother Family Medical History: Dementia, Hyperlipidemia Additional Family Medical History / Comment(s): Alzheimer's disease and osteoporosis. She denies family history of cancer of the breast, uterus, ovaries, or colon. Father Family Medical History: Coronary Artery Disease (CAD), Dementia Medications and Allergies Home Medications Medication Instructions Recorded Confirmed Type Aspirin [Adult Low Dose Aspirin EC] 81 mg PO DAILY@1800 11/27/21 01/21/24 History Levothyroxine Sodium [Synthroid] 50 mcg PO DAILY@0500 11/27/21 01/21/24 History Propranolol HCl [Propranolol HCl 120 mg PO DAILY@1000 11/27/21 01/21/24 History ER] Rosuvastatin Calcium 10 mg PO HS@2100 11/27/21 01/21/24 History Losartan [Cozaar] 50 mg PO DAILY 30 Days #30 tab 01/23/24 Rx amLODIPine [Norvasc] 10 mg PO DAILY@1200 30 Days #30 tab 01/23/24 Rx hydrOXYzine HCL [Atarax] 25 mg PO QID PRN #90 tab 01/23/24 Rx hydroCHLOROthiazide [Hydrodiuril] 25 mg PO DAILY 30 Days #30 tab 01/23/24 Rx Allergies Allergy/AdvReac Type Severity Reaction Status Date / Time eggplant Allergy Chest Pain Verified 01/21/24 13:22 Sulfa (Sulfonamide Allergy Swelling Verified 01/21/24 13:22 Antibiotics) latex AdvReac Itching Verified 01/21/24 13:22 Physical Exam Vitals: Vital Signs Temp Pulse Pulse Resp BP Pulse Ox 01/21/24 13:57 191/88 01/21/24 11:28 80 01/21/24 11:07 98.1 F 76 18 96 Intake and Output 01/20/24 01/21/24 01/21/24 22:59 06:59 14:59 Other: Weight 88.451 kg Results CBC & Chem 7: 01/22/24 03:54 01/22/24 03:54 Labs: Abnormal Lab Results - Last 24 Hours (Table) 01/21/24 01/21/24 Range/Units 11:21 11:21 Hct 46.4 H (34.0-46.0) % Chloride 111 H (98-107) mmol/L Carbon Dioxide 20 L (22-30) mmol/L
[2024-01-21] MEDS: ATORVASTATIN 20 MG TAB PO SCH (21:21)
[2024-01-21] MEDS: HEPARIN SODIUM,PORCINE 5,000 UNIT/ML 1 ML VIAL SQ SCH (21:36)
[2024-01-22 04:31] LABS: HCT 47.7 % (34.0-46.0); MCH 31.5 pg (25.0-35.0); MCHC 31.5 g/dL (31.0-37.0); MCV 100.2 fL (80.0-100.0); Mean Platelet Volume 8.9; Platelet Count 217 k/uL (150-450); RBC 4.76 m/uL (3.80-5.40); RDW 12.8 % (11.5-15.5); WBC 6.4 k/uL (3.8-10.6)
[2024-01-22 04:56] LABS: ALT 26 U/L (4-34); AST 27 U/L (14-36); African American GFR (CKD) >90 (>60 ml/min/1.73 sqM); Albumin 4.1 g/dL (3.5-5.0); Alkaline Phosphatase 70 U/L (38-126); Anion Gap 8 mmol/L; Blood Urea Nitrogen 17 mg/dL (7-17); Carbon Dioxide 21 mmol/L (22-30); Chloride 108 mmol/L (98-107); Glucose 94 mg/dL (74-99); Non-African American GFR(CKD) 89 (>60 ml/min/1.73 sqM); Potassium 4.2 mmol/L (3.5-5.1); Sodium 137 mmol/L (137-145); Total Bilirubin 0.8 mg/dL (0.2-1.3); Total Protein 6.7 g/dL (6.3-8.2)
[2024-01-22] MEDS: LEVOTHYROXINE 50 MCG TAB PO SCH (05:49)
[2024-01-22] MEDS: PROPRANOLOL LA 60 MG CAP.SA.24H PO SCH (08:27)
--- NOTE | 2024-01-22 09:58 | P.CRDCN ---
History of Present Illness History of present illness: HISTORY OF PRESENT ILLNESS: This is a 78-year-old female with a past medical history significant for hypertension and hyperlipidemia. Patient follows in the office with Dr. Sun but has not been seen in the office since December 2021. We have been asked to see the patient in consultation for chest pain. Patient examined at the bedside. Patient states yesterday she was shopping and as she was in the car going home she began to feel unwell. She states that she fell like she was going to pass out although she did not have any actual syncopal events. She reports having some mild discomfort in her chest and in her arms. She reports feeling diaphoretic and having palpitations. At the time examination, the patient denies any chest pain or pressure. Patient was found to have significantly elevated blood pressures with a systolic greater than 200 on arrival. Blood pressure this morning remains elevated with a systolic in the 180s. DIAGNOSTICS: - EKG reveals sinus mechanism with nonspecific ST-T wave changes. - Chest xray negative for acute process. - Laboratory data: WBC 6.4. Hemoglobin 15.0. Platelet count 217. Sodium 137. Potassium 4.2. BUN 17. Creatinine 0.60. Magnesium 2.0. Troponin negative x 3. TSH 1.720. - Current home cardiac medications include propranolol 120 mg daily, amlodipine 5 mg daily, aspirin 81 mg daily, and rosuvastatin 10 mg at night. - Most recent echocardiogram obtained in November 2021 reveals ejection fraction 55%, mild MR, mild TR. - Cardiac catheterization history: November 2021 revealing normal coronary arteries REVIEW OF SYSTEMS: At the time of my exam: CONSTITUTIONAL: Denies fever or chills. HEENT: Denies blurred vision, vision changes, or eye pain. Denies hemoptysis CARDIOVASCULAR: Denies chest pain. Denies orthopnea. Denies PND. Denies palpitations RESPIRATORY: Denies shortness of breath. GASTROINTESTINAL: Denies abdominal pain. Denies nausea or vomiting. HEMATOLOGIC: Denies bleeding disorders. GENITOURINARY: Denies any blood in urine. SKIN: Denies pruitis. Denies rash. PHYSICAL EXAM: VITAL SIGNS: Reviewed. GENERAL: Well-developed in no acute distress. HEENT: Head is normocephalic. Pupils are equal, round. Sclerae anicteric. Mucous membranes of the mouth are moist. Neck supple. No JVD or thyromegaly LUNGS: Respirations even and unlabored. Lungs essentially clear to auscultation bilaterally. HEART: Regular rate and rhythm. S1 and S2 heard. ABDOMEN: Soft. Nondistended. Nontender. EXTREMITIES: Normal range of motion. No clubbing or cyanosis. Peripheral pulses intact. No lower extremity edema NEUROLOGIC: Awake and alert. Oriented x 3. ASSESSMENT: Hypertensive emergency, systolic blood pressure greater than 200 on arrival Chest pain, troponin negative x 3, secondary to uncontrolled hypertension Hyperlipidemia Normal coronary arteries, per cardiac catheterization 2021 Obesity: BMI 32.4 PLAN: An acute coronary event has been ruled out 2D echo ordered. Await results Resume home cardiac medications Amlodipine has been increased to 10 mg daily per primary medicine Add losartan 50 mg daily and hydrochlorothiazide 25 mg daily Continue to monitor blood pressure Discharge home when BP is stabilized Further recommendations pending patient course Nurse practitioner note has been reviewed by physician. Signing provider agrees with the documented findings, assessment, and plan of care documented by ELEMENTARY SUBSTITUTE TEACHER as a scribe. Past Medical History Past Medical History: Hyperlipidemia, Hypertension, Osteoarthritis (OA), Thyroid Disorder Additional Past Medical History / Comment(s): Essential tremor. 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 fatty liver. 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 History of Any Multi-Drug Resistant Organisms: None Reported Past Surgical History: Appendectomy, Cholecystectomy, Hysterectomy Additional Past Surgical History / Comment(s): JULISA/BSO 1999. Excision of Bartholin's duct cyst. Colonoscopy 2019.) Past Anesthesia/Blood Transfusion Reactions: No Reported Reaction Additional Past Anesthesia/Blood Transfusion Reaction / Comment(s): no blood transfusion Past Psychological History: No Psychological Hx Reported Smoking Status: Never smoker Past Alcohol Use History: None Reported Past Drug Use History: None Reported - Past Family History Mother Family Medical History: Dementia, Hyperlipidemia Additional Family Medical History / Comment(s): Alzheimer's disease and osteoporosis. She denies family history of cancer of the breast, uterus, ovaries, or colon. Father Family Medical History: Coronary Artery Disease (CAD), Dementia Medications and Allergies Home Medications Medication Instructions Recorded Confirmed Type Aspirin [Adult Low Dose Aspirin EC] 81 mg PO DAILY@1800 11/27/21 01/21/24 History Levothyroxine Sodium [Synthroid] 50 mcg PO DAILY@0500 11/27/21 01/21/24 History Propranolol HCl [Propranolol HCl 120 mg PO DAILY@1000 11/27/21 01/21/24 History ER] Rosuvastatin Calcium 10 mg PO HS@2100 11/27/21 01/21/24 History amLODIPine [Norvasc] 5 mg PO DAILY@1200 07/15/23 01/21/24 History Allergies Allergy/AdvReac Type Severity Reaction Status Date / Time eggplant Allergy Chest Pain Verified 01/21/24 13:22 Sulfa (Sulfonamide Allergy Swelling Verified 01/21/24 13:22 Antibiotics) latex AdvReac Itching Verified 01/21/24 13:22 Physical Exam Vitals: Vital Signs Temp Pulse Pulse Pulse Resp BP BP 01/22/24 02:00 97.6 F 57 L 16 178/79 01/21/24 19:06 98.3 F 86 17 153/79 01/21/24 15:06 98.3 F 92 18 194/72 01/21/24 14:50 64 16 178/78 01/21/24 14:30 68 14 166/80 01/21/24 13:57 191/88 01/21/24 12:00 57 L 14 196/85 01/21/24 11:28 80 01/21/24 11:15 75 16 210/89 01/21/24 11:07 98.1 F 76 18 Pulse Ox 01/22/24 02:00 98 01/21/24 19:06 97 01/21/24 15:06 96 01/21/24 14:50 96 01/21/24 14:30 97 01/21/24 13:57 01/21/24 12:00 97 01/21/24 11:28 01/21/24 11:15 97 01/21/24 11:07 96 Intake and Output 01/21/24 01/22/24 01/22/24 22:59 06:59 14:59 Intake Total 590 Balance 590 Intake: Oral 590 Other: Voiding Method Toilet Toilet # Voids 1 2 Weight 88.451 kg Results 01/22/24 03:54 01/22/24 03:54 Cardiac Enzymes 01/21/24 01/21/24 01/21/24 Range/Units 11:21 11:21 16:40 AST 36 (14-36) U/L Troponin I <0.012 <0.012 (0.000-0.034) ng/mL 01/21/24 01/22/24 Range/Units 20:45 03:54 AST 27 (14-36) U/L Troponin I <0.012 (0.000-0.034) ng/mL Coagulation 01/21/24 Range/Units 11:21 PT 10.5 (10.0-12.5) sec APTT 23.8 (22.0-30.0) sec CBC 01/21/24 01/22/24 Range/Units 11:21 03:54 WBC 7.2 6.4 (3.8-10.6) k/uL RBC 4.72 4.76 (3.80-5.40) m/uL Hgb 15.3 15.0 (11.4-16.0) gm/dL Hct 46.4 H 47.7 H (34.0-46.0) % Plt Count 214 217 (150-450) k/uL Comprehensive Metabolic Panel 01/21/24 01/22/24 Range/Units 11:21 03:54 Sodium 140 137 (137-145) mmol/L Potassium 4.3 4.2 (3.5-5.1) mmol/L Chloride 111 H 108 H (98-107) mmol/L Carbon Dioxide 20 L 21 L (22-30) mmol/L BUN 13 17 (7-17) mg/dL Creatinine 0.67 0.60 (0.52-1.04) mg/dL Glucose 87 94 (74-99) mg/dL Calcium 9.3 9.0 (8.4-10.2) mg/dL AST 36 27 (14-36) U/L ALT 32 26 (4-34) U/L Alkaline Phosphatase 80 70 (38-126) U/L Total Protein 7.2 6.7 (6.3-8.2) g/dL Albumin 4.4 4.1 (3.5-5.0) g/dL Current Medications Generic Name Dose Route Start Last Admin Trade Name Freq PRN Reason Stop Dose Admin Amlodipine Besylate 5 mg 01/22/24 12:00 Amlodipine 5 Mg Tab PO DAILY@1200 GREYSON Aspirin 81 mg 01/21/24 18:00 01/21/24 18:28 Aspirin 81 Mg PO 81 mg DAILY@1800 GREYSON Administration Atorvastatin Calcium 20 mg 01/21/24 21:00 01/21/24 21:21 Atorvastatin 20 Mg Tab PO 20 mg HS@2100 GREYSON Administration Heparin Sodium (Porcine) 5,000 unit 01/22/24 00:00 01/21/24 21:36 Heparin Sodium,Porcine 5,000 Unit/Ml 1 Ml Vial SQ Not Given Q8HR GREYSON Levothyroxine Sodium 50 mcg 01/22/24 05:00 01/22/24 05:49 Levothyroxine 50 Mcg Tab PO 50 mcg DAILY@0500 GREYSON Administration Naloxone HCl 0.2 mg 01/21/24 13:40 Naloxone 0.4 Mg/Ml 1 Ml Vial IV Q2M PRN Opioid Reversal Propranolol HCl 120 mg 01/22/24 10:00 Propranolol La 60 Mg Cap.Sa.24h PO DAILY@1000 [facility] Intake and Output 01/21/24 01/22/24 01/22/24 22:59 06:59 14:59 Intake Total 590 Balance 590 Intake: Oral 590 Other: Voiding Method Toilet Toilet # Voids 1 2 Weight 88.451 kg 01/22/24 03:54 01/22/24 03:54
[2024-01-22 10:47] LABS: Chol/HDL Ratio 3.09 Ratio; VLDL Calculation 19.34 mg/dL (5.00-40.00)
[2024-01-22] MEDS: LOSARTAN 50 MG TAB PO SCH (11:03)
[2024-01-22] MEDS: amLODIPine 10 MG TAB PO SCH (11:04)
--- NOTE | 2024-01-22 11:27 | CA ---
Transthoracic Echo Report Name: Loida Dixon Age: 78 Gender: F : 1945 Exam Date: 01/22/2024 08:59 Exam Location: [place] [facility] Ht (in): 65 Wt (lb): 195 Ordering Physician: Saul Ybarra Attending/Referring Phys: Lockstitch Tunnel Elastic Operator Virgen Childress RDCS Procedure CPT: Indications: eval heart function and structure Cardiac Hx: Technical Quality: Technically difficult study Contrast 1: Definity Total Dose (mL): 2 Contrast 2: Total Dose (mL): MEASUREMENTS (Male / Female) Normal Values 2D ECHO LV Diastolic Diameter PLAX 2.7 cm 4.2 - 5.9 / 3.9 - 5.3 cm LV Systolic Diameter PLAX 1.7 cm IVS Diastolic Thickness 1.8 cm 0.6 - 1.0 / 0.6 - 0.9 cm LVPW Diastolic Thickness 1.8 cm 0.6 - 1.0 / 0.6 - 0.9 cm LV Relative Wall Thickness 1.3 LA Volume 60.0 cm??? 18 - 58 / 22 - 52 cm??? LA Volume Index 29.3 cm???/m??? 16 - 28 cm???/m??? M-MODE Aortic Root Diameter MM 2.2 cm LA Systolic Diameter MM 4.1 cm LA Ao Ratio MM 1.9 AV Cusp Separation MM 1.6 cm DOPPLER AV Peak Velocity 123.9 cm/s AV Peak Gradient 6.1 mmHg AV Mean Velocity 76.6 cm/s AV Mean Gradient 2.9 mmHg AV Velocity Time Integral 26.5 cm LVOT Peak Velocity 111.9 cm/s LVOT Peak Gradient 5.0 mmHg LVOT Velocity Time Integral 25.8 cm MV Area PHT 4.0 cm??? Mitral E Point Velocity 94.7 cm/s Mitral A Point Velocity 60.6 cm/s Mitral E to A Ratio 1.6 MV Deceleration Time 188.4 ms MV E' Velocity 7.0 cm/s Mitral E to MV E' Ratio 13.6 TR Peak Velocity 185.5 cm/s TR Peak Gradient 13.8 mmHg Right Ventricular Systolic Press 18.8 mmHg FINDINGS Left Ventricle Severely increased left ventricular wall thickness. Left ventricular cavity size normal. Normal left ventricular systolic function with no obvious regional wall motion abnormalities. Left ventricular ejection fraction is estimated at 55-60 %. Grade 1 diastolic dysfunction. Right Ventricle Normal right ventricular size and function. Right ventricular systolic pressure within normal limits. Right Atrium Normal right atrial size. Left Atrium Mildly increased left atrial volume. Mildly increased left atrial area. Mitral Valve Structurally normal mitral valve. Mitral valve thickened. Mild mitral annular calcification. Mild mitral regurgitation. Aortic Valve Trileaflet aortic valve. No aortic valve stenosis or regurgitation. Aortic valve sclerosis. Tricuspid Valve Structurally normal tricuspid valve. Mild tricuspid regurgitation. Pulmonic Valve Structurally normal pulmonic valve. Trace pulmonic regurgitation. Pericardium No pericardial effusion. Aorta Normal size aortic root and proximal ascending aorta. CONCLUSIONS Technically difficult study for interpretation Normal LV systolic function 60% Previewed by: Dr. Norman Kelly MD (Electronically Signed) Final Date: 22 January 2024 11:27
[2024-01-22] MEDS ORDERED: amLODIPine 5 MG TAB PO SCH (12:00)
[2024-01-22] MEDS: hydroCHLOROthiazide 25 MG TAB PO SCH (12:47)
--- NOTE | 2024-01-22 13:31 | P.PN ---
Subjective Progress Note Date: 01/22/24 Hospital course: Patient is a very pleasant 78-year-old female with a past medical history of hypertension, hyperlipidemia, hypothyroidism, and essential tremors. Presented to the emergency department with a chief complaint of chest pressure, cold sweats, dizziness, and palpitations. Patient reports she was feeling her baseline self and shortly after leaving [place] she suddenly felt cold sweats followed by dizziness/lightheadedness, palpitations and lastly chest pressure. Patient reports she was right down the street from her PCPs office so her drove straight there. She was given aspirin and sublingual nitroglycerin while an EKG was completed. Patient reports resolution of chest pressure after receiving nitroglycerin but was advised by her PCP to go directly to the hospital for further evaluation. Patient currently reports chest pressure remains resolved and denies any further episodes of cold sweats, dizziness/lightheadedness, or palpitations at this time. Patient denies cardiac history. Upon arrival to our facility, patient underwent evaluation in the emergency department. Vital signs upon arrival show blood pressure 210/89, heart rate 75, respiratory rate 16, temp 98.1 F, and SpO2 of 97% on room air. EKG was completed showing normal sinus rhythm at 80 bpm. Chest x-ray completed negative for acute cardiopulmonary process. Labs completed and reviewed. CBC unremarkable. Coagulation profile normal findings. BMP showing non-anion gap m etabolic acidosis with chloride of 111, bicarb of 20, and anion gap of 9. Troponin was negative at less than 0.012. Liver profile unremarkable. Blood glucose was 87. Patient was admitted under our services with consultation to cardiology. Physical exam: Vital signs reviewed and stable. General: Nontoxic, no distress and appears stated age. Derm: Skin warm and dry, normal coloration for ethnicity. Head: Atraumatic, normocephalic and symmetric. Eyes: EOMs intact, no lid lag, and anicteric sclera Mouth: no lip lesions, mucus membranes moist Cardiovascular: regular rate and rhythm with normal S1S2, no murmur, positive posterior tibial pulses bilaterally, and cap refill < 2 seconds. Lungs: Respirations even, regular, and unlabored on room air. Lungs CTA bilaterally, no rhonchi, no rales, no wheezing, and no accessory muscle usage. Abdominal: soft, nontender to palpation, no guarding, no appreciable organomegaly Ext: ROM intact. No gross muscle atrophy, no edema, no contractures Neuro: Speech clear, face symmetrical and CN II-XII grossly intact with no noted focal neuro deficits Psych: Alert and oriented to person, place, time, and situation. Appropriate and pleasant affect. Assessment and Plan of Care: Chest pain, acute coronary event ruled out Hypertensive urgency Hyperlipidemia -Cardiology consulted, reviewed documentation in chart. Cardiology will follow- up on echocardiogram results and added hydrochlorothiazide 25 mg daily and losartan 50 mg daily to current antihypertensive medication regimen. -Telemetry monitoring -Troponins were trended and all negative at less than 0.012 x 3 draws. -Cardiac diet -Aspirin 81 mg daily, atorvastatin milligrams nightly, and amlodipine 5 mg daily. -Lipid profile unremarkable. -Echocardiogram completed showing a preserved EF of 60% with no significant valvular or structural abnormalities reported. Hypothyroidism TSH normal findings at 1.720. Patient to continue daily medication regimen with levothyroxine 50 mcg daily. Essential tremors Continue propranolol 120 mg daily. Data and imaging reviewed: Labs completed and reviewed. Troponins were trended overnight all negative at less than 0.012 x 3 draws. Lipid profile was unremarkable. TSH was normal findings at 1.720. Morning CBC showing mild macrocytosis with MCV of 100.2 otherwise normal findings. BMP showing mild metabolic acidosis with chloride of 108, bicarb of 21, and anion gap of 8. Magnesium normal findings at 2.0. Vital signs reviewed. Patient remains hypertensive this morning with blood pressure 187/78, heart rate 58, respiratory rate 18, temp 97.6 F, and SpO2 of 97% on room air. Echocardiogram completed showing a preserved EF of 60% with no significant valvular or structural abnormalities reported. CODE STATUS: Full code DVT prophylaxis: Heparin Anticipated discharge date: Likely within the next 24 hours pending sta bilization of blood pressure. Anticipated discharge place: Home Patient was seen independently by Nurse Practitioner. This document was prepared using [employer] dictation software. Please allow for errors in dietary assistant while rare they do occur. Saul Ybarra NP rendered care for this patient independently, reviewed the findings and plan as documented in the note above. I did not physically speak with or examine the patient on this date. Objective - Vital Signs Vital signs: Vital Signs Temp 97.6 F 01/22/24 02:00 Pulse 57 L 01/22/24 02:00 Resp 16 01/22/24 02:00 BP 178/79 01/22/24 02:00 Pulse Ox 98 01/22/24 02:00 FiO2 Intake & Output 01/21/24 01/22/24 01/22/24 18:59 06:59 18:59 Intake Total 590 Balance 590 Weight 88.451 kg Intake: Oral 590 Other: Voiding Method Toilet # Voids 1 2 - Labs CBC & Chem 7: 01/22/24 03:54 01/22/24 03:54 Labs: Abnormal Lab Results - Last 24 Hours (Table) 01/21/24 01/21/24 01/22/24 Range/Units 11:21 11:21 03:54 Hct 46.4 H 47.7 H (34.0-46.0) % MCV 100.2 H (80.0-100.0) fL Chloride 111 H (98-107) mmol/L Carbon Dioxide 20 L (22-30) mmol/L 01/22/24 Range/Units 03:54 Hct (34.0-46.0) % MCV (80.0-100.0) fL Chloride 108 H (98-107) mmol/L Carbon Dioxide 21 L (22-30) mmol/L
[2024-01-22] MEDS: hydrOXYzine HCL 25 MG TAB PO SCH (17:59)
[2024-01-23 03:24] VITALS: RESP 16
[2024-01-23 08:02] VITALS: BP 155/72; PULSE 59; TEMP 97.8
--- NOTE | 2024-01-23 11:45 | P.PN ---
Subjective HISTORY OF PRESENT ILLNESS: This is a 78-year-old female with a past medical history significant for hypertension and hyperlipidemia. Patient follows in the office with Dr. Sun but has not been seen in the office since December 2021. We have been asked to see the patient in consultation for chest pain. Patient examined at the bedside. Patient states yesterday she was shopping and as she was in the car going home she began to feel unwell. She states that she fell like she was going to pass out although she did not have any actual syncopal events. She reports having some mild discomfort in her chest and in her arms. She reports feeling di aphoretic and having palpitations. At the time examination, the patient denies any chest pain or pressure. Patient was found to have significantly elevated blood pressures with a systolic greater than 200 on arrival. Blood pressure this morning remains elevated with a systolic in the 180s. DIAGNOSTICS: - EKG reveals sinus mechanism with nonspecific ST-T wave changes. - Chest xray negative for acute process. - Laboratory data: WBC 6.4. Hemoglobin 15.0. Platelet count 217. Sodium 137. Potassium 4.2. BUN 17. Creatinine 0.60. Magnesium 2.0. Troponin negative x 3. TSH 1.720. - Current home cardiac medications include propranolol 120 mg daily, amlodipine 5 mg daily, aspirin 81 mg daily, and rosuvastatin 10 mg at night. - Most recent echocardiogram obtained in November 2021 reveals ejection fraction 55%, mild MR, mild TR. - Cardiac catheterization history: November 2021 revealing normal coronary arteries 01/23/2024 Patient examined this morning at the bedside. Patient currently denies shortness of breath. She denies shortness of breath. Vital signs are stable. Blood pressure has improved with a recent reading of 155/72. Echocardiogram completed revealing ejection fraction 55 to 60%. PHYSICAL EXAM: VITAL SIGNS: Reviewed. GENERAL: Well-developed in no acute distress. HEENT: Head is normocephalic. Pupils are equal, round. Sclerae anicteric. Mucous membranes of the mouth are moist. Neck supple. No JVD or thyromegaly LUNGS: Respirations even and unlabored. Lungs essentially clear to auscultation bilaterally. HEART: Regular rate and rhythm. S1 and S2 heard. ABDOMEN: Soft. Nondistended. Nontender. EXTREMITIES: Normal range of motion. No clubbing or cyanosis. Peripheral pulses intact. No lower extremity edema NEUROLOGIC: Awake and alert. Oriented x 3. ASSESSMENT: Hypertensive emergency, systolic blood pressure greater than 200 on arrival Chest pain, troponin negative x 3, secondary to uncontrolled hypertension Hyperlipidemia Normal coronary arteries, per cardiac catheterization 2021 Obesity: BMI 32.4 PLAN: Continue current cardiac medications Continue to monitor blood pressure Patient is stable for discharge home today from a cardiac standpoint Further recommendations pending patient course Nurse practitioner note has been reviewed by physician. Signing provider agrees with the documented findings, assessment, and plan of care documented by SUSTAINABILITY PROJECT COORDINATOR as a scribe. Objective - Vital Signs Vital signs: Vital Signs Temp 97.8 F 01/23/24 07:00 Pulse 59 L 01/23/24 07:00 Resp 16 01/23/24 07:00 BP 155/72 01/23/24 07:00 Pulse Ox 96 01/23/24 07:00 FiO2 Intake & Output 01/22/24 01/23/24 01/23/24 18:59 06:59 18:59 Intake Total 236 Balance 236 Intake: Oral 236 Other: Voiding Method Toilet # Voids 1 2 - Labs CBC & Chem 7: 01/22/24 03:54 01/22/24 03:54
--- NOTE | 2024-01-23 15:43 | P.DS ---
Providers Date of admission: 01/21/24 13:25 Expected date of discharge: 01/23/24 Attending physician: Lauri Nielsen MD Consults: 01/21/24 13:40 Consult Physician Urgent Consulting Provider: [facility] Consult Reason/Comments: chest pain r/o ACS Do you want consulting provider notified?: Yes Primary care physician: Laureano Amaro [facility] Course: Discharge Diagnosis: Chest pain, acute coronary event ruled out. Hypertensive urgency. Hyperlipidemia Hypothyroidism Essential tremors Hospital course: Patient is a very pleasant 78-year-old female with a past medical history of hypertension, hyperlipidemia, hypothyroidism, and essential tremors. Presented to the emergency department with a chief complaint of chest pressure, cold sweats, dizziness, and palpitations. Upon arrival to our facility, patient underwent evaluation in the emergency department. Vital signs upon arrival show blood pressure 210/89, heart rate 75, respiratory rate 16, temp 98.1 F, and SpO2 of 97% on room air. EKG was completed showing normal sinus rhythm at 80 bpm. Chest x-ray completed negative for acute cardiopulmonary process. Labs completed and reviewed. CBC unremarkable. Coagulation profile normal findings. BMP showing non-anion gap metabolic acidosis with chloride of 111, bicarb of 20, and anion gap of 9. Troponin was negative at less than 0.012. Liver profile unremarkable. Blood glucose was 87. Patient was admitted under our services with consultation to cardiology. Troponins were trended overnight and all were negative resulting at less than 0.012 x 3 draws. TSH was normal find ings at 1.720. Patient with no further episodes of chest pressure, palpitations, or dizziness/lightheadedness. She did report feeling anxious throughout hospitalization and was started on hydroxyzine for anxiety and her amlodipine was increased to 10 mg daily. Patient was evaluated by cardiology whom added hydrochlorothiazide 25 mg daily and losartan 50 mg daily to current antihypertensive medication regimen. Echocardiogram completed showing a preserved EF of 60% with no significant valvular or structural abnormalities reported. Patient monitored overnight and had moderate improvement of hypertension. She was cleared from cardiology perspective. Patient medically stable for discharge at this time and was discharged home with prescriptions for amlodipine 10 mg daily, losartan 50 mg daily, hydrochlorothiazide 25 mg daily, and hydroxyzine 25 mg 4 times daily as needed for anxiety. Patient instructed to follow-up outpatient with her PCP in 1 to 2 days and with plugger man in 1 week. Physical exam: Vital signs reviewed and stable. General: Nontoxic, no distress and appears stated age. Derm: Skin warm and dry, normal coloration for ethnicity. Head: Atraumatic, normocephalic and symmetric. Eyes: EOMs intact, no lid lag, and anicteric sclera. Mouth: no lip lesions, mucus membranes moist. Cardiovascular: regular rate and rhythm with normal S1S2, no murmur, positive posterior tibial pulses bilaterally, and cap refill < 2 seconds. Lungs: Respirations even, regular, and unlabored on room air. Lungs CTA bilaterally, no rhonchi, no rales, no wheezing, and no accessory muscle usage. Abdominal: soft, nontender to palpation, no guarding, no appreciable organomegaly. Ext: ROM intact. No gross muscle atrophy, no edema, no contractures. Neuro: Speech clear, face symmetrical and CN II-XII grossly intact with no noted focal neuro deficits. Psych: Alert and oriented to person, place, time, and situation. Appropriate and pleasant affect. A total of 33 minutes of time were spent preparing this complex discharge summary. Pt was discharged on 01/23/2024 at 11:32 AM Patient was seen independently by Nurse Practitioner. This document was prepared using [employer] dictation software. Please allow for errors in lumber loader while rare they do occur. Saul Ybarra NP rendered care for this patient independently, reviewed the findings and plan as documented in the note above. I did not physically speak with or examine the patient on this date. Patient Condition at Discharge: Stable Plan - Discharge Summary Discharge Rx Participant: Yes New Discharge Prescriptions: New hydroCHLOROthiazide [Hydrodiuril] 25 mg PO DAILY 30 Days #30 tab hydrOXYzine HCL [Atarax] 25 mg PO QID PRN #90 tab PRN Reason: Anxiety Losartan [Cozaar] 50 mg PO DAILY 30 Days #30 tab amLODIPine [Norvasc] 10 mg PO DAILY@1200 30 Days #30 tab Continue Rosuvastatin Calcium 10 mg PO HS@2100 Aspirin [Adult Low Dose Aspirin EC] 81 mg PO DAILY@1800 Propranolol HCl [Propranolol HCl ER] 120 mg PO DAILY@1000 Levothyroxine Sodium [Synthroid] 50 mcg PO DAILY@0500 Discontinued amLODIPine [Norvasc] 5 mg PO DAILY@1200 Discharge Medication List Aspirin [Adult Low Dose Aspirin EC] 81 mg PO DAILY@1800 11/27/21 [History] Levothyroxine Sodium [Synthroid] 50 mcg PO DAILY@0500 11/27/21 [History] Propranolol HCl [Propranolol HCl ER] 120 mg PO DAILY@1000 11/27/21 [History] Rosuvastatin Calcium 10 mg PO HS@2100 11/27/21 [History] Losartan [Cozaar] 50 mg PO DAILY 30 Days #30 tab 01/23/24 [Rx] amLODIPine [Norvasc] 10 mg PO DAILY@1200 30 Days #30 tab 01/23/24 [Rx] hydrOXYzine HCL [Atarax] 25 mg PO QID PRN #90 tab 01/23/24 [Rx] hydroCHLOROthiazide [Hydrodiuril] 25 mg PO DAILY 30 Days #30 tab 01/23/24 [Rx] Follow up Appointment(s)/Referral(s): Norman Kelly MD [STAFF PHYSICIAN] - 1 Week Laureano Amaro DO [Primary Care Provider] - 1-2 days Patient Instructions/Handouts: Hypertensive Crisis (DC) Activity/Diet/Wound Care/Special Instructions: Activity: As tolerated. Take breaks as needed. Diet: Heart healthy and carb consistent diet. Avoid salts, or foods with hidden salts such as canned or boxed foods and frozen dinners. Extra salt makes your heart work harder and traps the fluid in your body for longer. Special Instructions: Take all of your medications as directed and remember to keep all of your doctor's appointments and follow-up as needed. Remember, as discussed please monitor your blood pressure twice daily at home and document these results and a daily log to bring with you to your next appointment at your PCPs with Dr. Amaro as well as plugger man appointment with Dr. Kelly. Thank you for allowing us to participate in your care, it was truly a pleasure having you for our patient!!! . Discharge Disposition: HOME SELF-CARE
== END 2024-01-23 11:59 | disposition home or self-care (01) ==
LOC: EC 11:02 → 6NMEDSUR 13:25 → 1SOBS 18:46 → 6NMEDSUR 01-22 16:06
PROVIDERS: ADMIT Student in an Organized Health Care Education/Training Program; ATTEND Student in an Organized Health Care Education/Training Program
DX: R07.89 Other chest pain (principal); I16.1 Hypertensive emergency; I10 Essential (primary) hypertension; E87.20 Acidosis, unspecified; M25.512 Pain in left shoulder; M25.511 Pain in right shoulder; E03.9 Hypothyroidism, unspecified; E78.5 Hyperlipidemia, unspecified; G25.0 Essential tremor; R61 Generalized hyperhidrosis; D75.89 Other specified diseases of blood and blood-forming organs; E66.9 Obesity, unspecified; Z68.32 Body mass index [BMI] 32.0-32.9, adult; Z79.82 Long term (current) use of aspirin; Z79.890 Hormone replacement therapy; Z79.899 Other long term (current) drug therapy; Z91.040 Latex allergy status; Z88.2 Allergy status to sulfonamides; Z91.018 Allergy to other foods
CPT/HCPCS: 96372; 99285; 36415; 93005; 80061; 80053 ×2; 84443; 83735 ×2; 84484; 85025; 85027; 85610; 85730; 71046; G0378 ×5; C8929; J1644; Q9957; 93306

== ENCOUNTER → 2024-06-24 | Outpatient (CLI) | payer MEDICARE ==
--- NOTE | 2024-06-24 12:36 | US ---
EXAMINATION TYPE: US kidneys/renal and bladder DATE OF EXAM: 06/24/2024 COMPARISON: Abdominal ultrasound 06/10/2023 CLINICAL INDICATION: Female, 78 years old with history of N28.9 Renal insufficiency; Abnormal labs. TECHNIQUE: Grayscale imaging of the bilateral kidneys and urinary bladder: FINDINGS: EXAM MEASUREMENTS: Right Kidney: 9.8 x 4.4 x 4.8 cm Left Kidney: 9.4 x 4.4 x 3.4 cm Right Kidney: No hydronephrosis or masses seen Left Kidney: No hydronephrosis or masses seen Bladder: Anechoic Bilateral Jets seen: yes There is no evidence for hydronephrosis at this point in time. Corticomedullary differentiation is ma intained bilaterally. No significant cortical thinning. No nephrolithiasis is seen. No masses are id entified. The urinary bladder is anechoic. IMPRESSION: No hydronephrosis or nephrolithiasis. [facility], , 06/24/2024 12:34 PM
--- NOTE | 2024-06-25 14:51 | MM ---
Reason for Exam: Screening (asymptomatic). Last mammogram was performed 1 year(s) and 3 month(s) ago. Patient History: Menarche at age 15. First Full-Term at age 26. Left ovary removed at age 53. Right ovary removed at age 53. Hysterectomy at age 53. Postmenopausal. Estrogen for 7 years from age 54 until age 61. Risk Values: Alejandra 5 year model risk: 1.6%. NCI Lifetime model risk: 3.2%. Prior Study Comparison: 05/22/2020 Bilateral Screening Mammogram, [facility]. 01/11/2022 Bilateral MG 3D screening mammo w/cad, [facility]. 03/05/2023 Bilateral MG 3D screening mammo w/cad, [facility]. Tissue Density: There are scattered areas of fibroglandular density. Findings: Analyzed By CAD. Right breast: There is no suspicious group of microcalcifications or new suspicious mass. Benign-appearing calcifications right breast. Left breast: There is no suspicious group of microcalcifications or new suspicious mass. Benign-appearing calcifications left breast. Overall Assessment: Benign, BI-RAD 2 Management: Screening Mammogram of both breasts in [address] [facility] will attempt to contact patient to return for supplemental views and ultrasound if indicated. Patient should continue monthly self-breast exams. A clinical breast exam by your physician is recommended on an annual basis. This exam should not preclude additional follow-up of suspicious palpable abnormalities. Note on Alejandra scores and lifetime risk: 1. A Alejandra score greater than 3% is considered moderate risk. If this is the case, consider specialist referral to assess eligibility for a risk reducing agent. 2. If overall lifetime risk for the development of breast cancer is 20% or higher, the patient may qualify for future screening with alternating mammogram and breast MRI. [facility], , 06/25/2024 2:48 PM. Electronically signed and approved by: Kenny Kumar DO
== END | disposition home or self-care (01) ==
LOC: RADUSWWP 08:52
PROVIDERS: ATTEND Internal Medicine
DX: Z12.31 Encounter for screening mammogram for malignant neoplasm of breast (principal); R92.323 Mammographic fibroglandular density, bilateral breasts; N28.9 Disorder of kidney and ureter, unspecified; Z90.722 Acquired absence of ovaries, bilateral; Z78.0 Asymptomatic menopausal state
CPT/HCPCS: 76770; 77063; 77067